=== PATIENT | female | born 1965 | race Caucasian/White ===

== ENCOUNTER 2024-06-08 18:01 | Emergency (ER) | payer OTHER, SELFPAY ==
--- NOTE | ~2024-06-08 | CT_ITS ---
CLINICAL HISTORY: fairchild, all day, nausea, vomiting, vertigo CT Head without contrast. CT angiography head and neck with contrast. 3D Postprocessing. Comparison: None Findings: HEAD CT: No intra-axial mass, midline shift, hydrocephalus, or acute hemorrhage. No significant atrophy-like change or white matter disease. There is no sinus or mastoid fluid. The orbits are unremarkable. There is no acute fracture. HEAD AND NECK CTA: Aortic arch and cervical great vessels are patent. Intracranial arteries are patent. No aneurysm, dissection, or occlusion. No abnormal intracranial enhancement. The visualized thyroid gland is unremarkable. No cervical mass or fluid collection. Lung apices clear. No acute fracture. IMPRESSION: 1. Unremarkable head CT. 2. Patent head and neck CTA. This document has been electronically signed by: Jeff Borja MD on 06/08/2024 23:21:36
[2024-06-08 18:13] VITALS: BP 129/60; BP 131/88; PULSE 70; PULSE 80; RESP 16; TEMP 36.4; O2SAT 96; O2SAT 99; BMI 35.5
--- NOTE | 2024-06-08 18:31 | ECG_ITS ---
Test Reason : NAUSEA Blood Pressure : / mmHG Vent. Rate : 066 BPM Atrial Rate : 066 BPM P-R Int : 130 ms QRS Dur : 088 ms QT Int : 414 ms P-R-T Axes : 038 -10 002 degrees QTc Int : 434 ms Normal sinus rhythm with sinus arrhythmia Septal infarct , age undetermined Abnormal ECG No previous ECGs available Referred By: Starr Fatima Electronically Signed By:SHIRIN FIGUEROA MD
[2024-06-08 18:49] LABS: Basophils Absolute Auto 0.1 X10*3/uL (0.0-0.2); Basophils Percent Auto 0.6 % (0-2); Eosinophils Percent Auto 0.2 % (0-4); Hematocrit 42.7 % (37.0-47.0); Hemoglobin 14.5 g/dl (12.0-16.0); Imm Gran Abs Auto 0.03 X10*3/uL (0.00-0.03); Imm Gran Pct Auto 0.3 % (0.0-0.4); Lymphocytes Absolute Auto 1.6 X10*3/uL (1.2-4.9); Lymphocytes Percent Auto 13.9 % (20-40); MANUAL DIFF FLAG NO; Mean Corpuscular Hemoglobin 31.7 pg (27.0-33.0); Mean Corpuscular Volume 93.2 fL (80.0-98.0); Mean Platelet Volume 9.9 fL (9.4-12.3); Monocytes Absolute Auto 0.5 X10*3/uL (0.1-1.2); Neutrophils Absolute Auto 9.1 x10*3/uL (2.0-8.3); Platelet Count 225 X10*3/uL (160-400); Red Blood Count 4.58 X10*6/uL (4.20-5.50); Red Cell Distribution Width 12.3 % (11.0-16.0); White Blood Count 11.2 X10*3/uL (4.8-10.8)
[2024-06-08 19:09] LABS: Alanine Aminotransferase 148 U/L (0-31); Albumin Level 4.4 g/dL (3.5-5.0); Alkaline Phosphatase 71 U/L (39-117); Anion Gap 15 (12-20); Aspartate Amino Transferase 114 U/L (5-31); Bilirubin Total 0.5 mg/dL (0.0-1.0); Blood Urea Nitrogen 13 mg/dL (9-16); Calcium 9.6 mg/dL (8.4-10.2); Carbon Dioxide 21 mmol/L (22-29); Chloride 107 mmol/L (96-108); Creatinine Clr Calc Pharmacy 95.5; Estimated Glomerular Filt Rate > 60; Glucose Random 198 mg/dL (60-115); Potassium 5.3 mmol/L (3.3-5.1); Sodium 138 mmol/L (135-145); Total Protein 7.7 g/dL (6.5-8.0)
[2024-06-08 19:17] LABS: Troponin-I High Sensitivity < 2.7 ng/L (<3.5-17.0)
[2024-06-08 20:33] VITALS: BP 125/71; PULSE 76; RESP 16; TEMP 36.9; O2SAT 96
--- NOTE | 2024-06-08 20:35 | PC.NURSE ---
Addendum entered by Faizan Avila 06/08/24 20:39: pt denies double, or blurred vision, report no prior hx of symptoms Original Note: pt in bed, with towel over her face, reports that her eyes are sensitive to light, also co nausea. DIDIER Aldridge notified, awaiting orders
[2024-06-08] MEDS: Meclizine HCl 25 MG TABLET 50 MG PO (20:53)
[2024-06-08] MEDS: iohexoL 350 MG/ML 100 ML INFUS..BTL IV (22:16)
--- NOTE | 2024-06-08 22:21 | ED_ITS ---
HPI - Dizziness General Chief Complaint: Dizziness Stated Complaint: DIZZY, N/V Time Seen by Provider: 06/08/24 21:26 History of Present Illness HPI Narrative: Patient is a 58-year-old female presents today with having headache spinning sensation that is worse with movement. No history of the same in the past. Patient was moving a bag of pellet at that time. There is no chest pain. There is no diaphoresis. There is no fever. The spinning is made worse with movement. Given Zofran on the ambulance to no avail. Patient was given Antivert in the emergency department prior to me evaluating patient. Still not better. Related Data Previous Rx's ?Medication ?Instructions ?Recorded meclizine 25 mg tablet 25 mg PO TID PRN dizziness #14 tabs 06/09/24 ondansetron 4 mg disintegrating 4 mg PO TID PRN nausea and 06/09/24 tablet vomiting 5 days #10 tabs Allergies Allergy/AdvReac Type Severity Reaction Status Date / Time fluoxetine Allergy Agitated Verified 06/08/24 18:18 morphine Allergy Anaphylaxis Verified 06/08/24 18:16 transparent dressing Allergy Rash Verified 06/08/24 18:19 Review of Systems 2 Review of Systems: Positive headache positive spinning sensation that is extreme. Worse with Yes all other systems are reviewed and are negative [facility] Past Medical History Attestation statement: The following information was validated with the patient. Social History Social History Smoked in Last 30 Days: No Use of substances other than those prescribed or required for medical reasons: No Advance Directives: No Advance Directives Information Provided: No Do you have a plan to hurt others: No Plan Physical Exam 2 Vital Signs: Vital Signs: Last Vital Signs Temp 98.5 F 06/08/24 20:33 Pulse 76 06/08/24 20:33 Resp 16 06/08/24 20:33 BP 125/71 06/08/24 20:33 Pulse Ox 96 06/08/24 20:33 O2 Del Method Room Air 06/08/24 20:33 BMI result Body Mass Index 35.5 Appearance: Alert. Oriented X3. No acute distress. Eyes: Pupils equal, round and reactive to light. ENT: Pharynx normal. Neck: Normal inspection. Neck supple. No lymph nodes noted. No crepitus CVS: Normal heart rate and rhythm. Pulses normal. Normal S1 and S2 Respiratory: No respiratory distress. Breath sounds normal. No Wheezing. No rales Abdomen: Soft and nontender. No rigidity. No distention. good BS x4 Skin: Skin warm and dry. Normal skin color. Normal skin turgor. Extremities: No lower extremity edema. Neurovascular intact to all extremities. No Lacerations. No Rash Neuro: Oriented X 3. No motor deficit. No sensory deficit. Moving all extermities. No slurred speech. On turning patient's head there is reproduction of patient's vertigo. Medications Administered Discontinued Medications Generic Name Dose Route Start Last Admin Trade Name Freq PRN Reason Stop Dose Admin Sodium Chloride 1,000 mls @ 999 mls/hr 06/08/24 22:15 06/08/24 23:57 Ns IV 06/08/24 23:15 Infused .Q1H1M CHERYL Infusion Iohexol 100 ml 06/08/24 22:15 06/08/24 22:16 Iohexol 350 Mg/Ml 100 Ml Infus..Btl IV 06/08/24 22:16 85 ml ONCE ONE Administration Lorazepam 1 mg 06/08/24 22:08 06/08/24 22:48 Lorazepam 2 Mg/Ml Vial IVPUSH 06/08/24 22:09 1 mg ONCE ONE Administration Meclizine HCl 50 mg 06/08/24 20:41 06/08/24 20:53 Meclizine Hcl 25 Mg Tablet PO 06/08/24 20:42 50 mg ONCE ONE Administration Ondansetron HCl 4 mg 06/08/24 22:08 06/08/24 22:48 Ondansetron Hcl 4 Mg/2 Ml Vial IVPUSH 06/08/24 22:09 4 mg ONCE ONE Administration Medical Decision Making Medical Decision Making [facility] Narrative: Patient is a 58-year-old female has sudden onset of spinning sensation. There is no focal weakness. patient felt extremely nauseous and was vomiting with any small movement. No chest pain or shortness of breath. Also had some headache. The symptoms started at around noon. Was given Zofran. Differential Diagnosis Differential Diagnoses: The differential diagnosis associated with the presentation includes Intracranial bleed, aneurysm, peripheral vertigo Admission/Observation Consideration of admission/observation: Escalation of care including admission/observation considered Lab Data [facility] Lab Attestation statement: I reviewed the patient's lab results. 06/08/24 18:41 06/08/24 18:41 Labs: Lab Results 06/08/24 06/08/24 Range/Units 18:41 18:42 WBC 11.2 H (4.8-10.8) X10*3/uL RBC 4.58 (4.20-5.50) X10*6/uL Hgb 14.5 (12.0-16.0) g/dl Hct 42.7 (37.0-47.0) % MCV 93.2 (80.0-98.0) fL MCH 31.7 (27.0-33.0) pg MCHC 34.0 (31.0-35.0) g/dl RDW 12.3 (11.0-16.0) % Plt Count 225 (160-400) X10*3/uL MPV 9.9 (9.4-12.3) fL Immature Gran % (Auto) 0.3 (0.0-0.4) % Neut % (Auto) 81.0 H (45-73) % Lymph % (Auto) 13.9 L (20-40) % [place] % (Auto) 4.0 (2-11) % Eos % (Auto) 0.2 (0-4) % Baso % (Auto) 0.6 (0-2) % Lymph # (Auto) 1.6 (1.2-4.9) X10*3/uL [place] # (Auto) 0.5 (0.1-1.2) X10*3/uL Eos # (Auto) 0.0 (0.0-0.4) X10*3/uL Baso # (Auto) 0.1 (0.0-0.2) X10*3/uL Abs Immat Gran (auto) 0.03 (0.00-0.03) X10*3/uL Absolute Neuts (auto) 9.1 H (2.0-8.3) x10*3/uL Absolute Nucleated RBC 0.000 (0.0-0.012) X10*3/uL Nucleated RBC % (auto) 0.0 (0.0-0.2) /100WBC Sodium 138 (135-145) mmol/L Potassium 5.3 H (3.3-5.1) mmol/L Chloride 107 (96-108) mmol/L Carbon Dioxide 21 L (22-29) mmol/L Anion Gap 15 (12-20) BUN 13 (9-16) mg/dL Creatinine 0.73 (0.5-1.4) mg/dL Estim Creat Clear Calc 95.5 Estimated GFR > 60 Random Glucose 198 H (60-115) mg/dL Calcium 9.6 (8.4-10.2) mg/dL Total Bilirubin 0.5 (0.0-1.0) mg/dL AST 114 H (5-31) U/L ALT 148 H (0-31) U/L Alkaline Phosphatase 71 (39-117) U/L Troponin I High Sens < 2.7 (<3.5-17.0) ng/L Total Protein 7.7 (6.5-8.0) g/dL Albumin 4.4 (3.5-5.0) g/dL Independent Interpretation I performed an independent interpretation of an: CT Scan (CT scan head was grossly negative for any acute evidence of bleed) Radiology Impression Discussion of test interpretation with radiology: I have reviewed the radiologist's reading. Discharge Plan Discharge Clinical Impression: Benign paroxysmal positional vertigo Patient Disposition: Home, Self-Care Instructions: Vertigo (ED), Benign Paroxysmal Positional Vertigo (ED) Prescriptions: New meclizine 25 mg tablet 25 mg PO TID PRN (Reason: dizziness) Qty: 14 0RF ondansetron 4 mg tablet,disintegrating 4 mg PO TID PRN (Reason: nausea and vomiting) 5 Days Qty: 10 0RF Referrals: Tamara Martinez MD [Primary Care Provider] - 06/11/24 Print Language: Malay
[2024-06-08] MEDS: LORazepam 2 MG/ML VIAL 1 MG IVPUSH (22:48)
[2024-06-08] MEDS: ondansetron HCL 4 MG/2 ML VIAL IVPUSH (22:48)
[2024-06-08] MEDS: 0.9 % Sodium Chloride 1,000 ML 999 ML IV (22:49)
--- NOTE | 2024-06-08 23:00 | PC.NURSE ---
pt fromct scan, medicated with zofran and ativan iv, and ns saline infusing
--- NOTE | 2024-06-09 00:14 | PC.NURSE ---
pt assisted to commode with a walker, voided, reports mildly nauseous , md aware
[2024-06-09 00:15] VITALS: BP 105/50; PULSE 73; RESP 16; TEMP 36.4; O2SAT 99
== END 2024-06-09 00:25 | disposition home or self-care (01) ==
PROVIDERS: Emergency Provider Emergency Medicine Emergency Medical Services; PCP Internal Medicine
DX: H81.10 Benign paroxysmal vertigo, unspecified ear (principal); R51.9 Headache, unspecified; R11.2 Nausea with vomiting, unspecified
CPT/HCPCS: 36415; 70496; 70498; 80053; 84484; 85025; 93005; 96361; 96374; 96375; 99284; 99285; J2060; J2405; Q9967

== ENCOUNTER → 2024-06-08 18:31 | Outpatient (BNV) | payer OTHER, SELFPAY | PROVIDERS: Emergency Provider Emergency Medicine Emergency Medical Services; PCP Internal Medicine; Visit Provider Internal Medicine Cardiovascular Disease | DX: R42 Dizziness and giddiness (principal); R94.31 Abnormal electrocardiogram [ECG] [EKG]; R11.0 Nausea | CPT/HCPCS: 93010 ==

== ENCOUNTER → 2024-06-08 22:08 | Outpatient (BNV) | payer OTHER, SELFPAY | PROVIDERS: Emergency Provider Emergency Medicine Emergency Medical Services; PCP Internal Medicine; Visit Provider Radiology Diagnostic Radiology | DX: R51.9 Headache, unspecified (principal); R42 Dizziness and giddiness; R11.2 Nausea with vomiting, unspecified | CPT/HCPCS: 70496; 70498 ==

== ENCOUNTER 2025-04-11 10:53 | Outpatient (REF) | payer BC, SELFPAY ==
--- OUTSIDE RECORDS SUMMARY | 2024-06-06 03:00 | XMS_ITS ---
Author Organization [employer] Address [address] [facility] [address] [place] [address] Care Team Providers Care Supervisor Fabrication Department Name Role Phone CATALINO LOVE M.D. 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 Medications Medication SIG (Take, Route, Frequency, Duration) Notes Start Date End Date Status Vitamin D 1 tablet Orally Acti ve Letrozole 2.5 MG Oral; Duration: 90 Active Atorvastatin Calcium 10 MG TAKE 1 TABLET BY MOUTH EVERYDAY AT BEDTIME Oral; Duration: 90 Active Encounters Encounter Location Date Provider Diagnosis [facility] [address] [address] 06/06/2024 ANNABELLE JUDGE Encounter for gynecological examination (general) (routine) without abnormal findings Z01.419 ; Encounter for screening mammogram for malignant neoplasm of breast Z12.31 and Encounter for screening for infections with a predominantly sexual mode of transmission Z11.3 Assessments Encounter Date Diagnosis (ICD Code) Assessment Notes Treatment Notes Treatment Clinical Notes Section Notes 06/06/2024 Encounter for gynecological examination (general) (routine) without abnormal findings (ICD-10 - Z01.419) During the visit, the following areas of concern were addressed: Discussed cervical cancer screening with either cytology alone every 3 years or high risk HPV co-testing every 5 years as per ASCCP guidelines. Advised continued annual pelvic exams. Patient encouraged to increase her level of exercise. SBE technique encouraged/tau ght. Patient reminded when annual mammogram is due. Patient encouraged to keep colon screening up to date. 06/06/2024 Encounter for screening mammogram for malignant neoplasm of breast (ICD-10 - Z12.31) 06/06/2024 Encounter for screening for infections with a predominantly sexual mode of transmission (ICD-10 - Z11.3) Plan Of Treatment Treatment Notes Assessment Notes Encounter for gynecological examination (general) (routine) without abnormal findings During the visit, the following areas of concern were addressed: Discussed cervical cancer screening with either cytology alone every 3 years or high risk HPV co-testing every 5 years as per ASCCP guidelines. Advised continued annual pelvic exams. Patient encouraged to increase her level of exercise. SBE technique encouraged/taught. Patient reminded when annual mammogram is due. Patient encouraged to keep colon screening up to date. 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 Subjective: * Chief Complaints: * 1 . 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 She has been in state of good health since her last exam. She has the following concerns: *none She has received the [employer] Covid-19 vaccine and booster. Relationship status: * for 14 years. She is sexually active. Sexual partner(s): female. She does not wish to have STI testing. She does *not report vaginal dryness. She does* have hot flashes/night sweats - tolerable. The patient has had an abnormal pap smear within the last 5 years. Her paps in 2018 and 2018 showed ASCUS, r/o HSIL, neg HR HPV. Her most recent pap was 01/18/22 - NIL, neg HR HPV. Her previous pap smear was 04/20/2020 - NIL, neg HR HPV. Next due for cotesting in 2026. She has been diagnosed with left breast cancer, and is followed by [facility]. She does *not have a family history of breast cancer. Her last mammogram was 10/02/23. She had a breast MRI 06/15/21. She had a left breast ultrasound on 11/13/23 for a palpable lump with a burning sensation, normal exam. She does have a family history of colon cancer - father. She a has had a colonoscopy. The last colonoscopy was 07/19/23. She is due for follow up . The patient does* exercise. She exercises x 1-2 days/week by treadmill - doing intervals. 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 B ladder symptoms d enies. V aginal discharge, unusual d enies. V aginal itch or odor d enies. w eight or appetite changes d enies. C hest pains, SOB d enies. d epression d enies.? B reast: Denies B reast lump. D enies N ipple discharge.? H ematology: Denies S wollen glands. S kin: Patient denies c hanging moles. P sychiatric: Denies A nxiety. * Medical History: * Retread Operator History: G ravida/ Para 2 /1011. S exual activity c urrently sexually active. L ast Pap Smear: NIL, NEG HR HPV , 04/20/2020, 04/18/19 ASCUS cannot exclude HGSIL, NEG HRHPV, 04/03/18 ASCUS r/o HSIL,NEG HRHPV. M ammogram: , BREAST MRI 06/15/21, BREAST US 11/13/23, 09/08/22, 08/02/2020, 07/10/19 < 50% density, 03/2018- found something on Mammo, but u/s came back neg. Bx done 04/04/18. MRI 01/2019. A bnormal Pap Smear: e juanjo 40s. No colpo done. All f/u paps were WNL until 2018 - 04/03/18 ASCUS r/o HSIL,NEG HRHPV; 06/2018 - colpo chronic cervicitis. L MP and menses 2 014-Alina. H istory of STD's: N one. B irth Control: P ost menopausal. C olonoscopy , 04/2017-WNL. B one Density: 2 019. G YN HISTORY MISC. C arries a gene (NBN) that increases her risk of breast cancer by 30%. * OB History: T otal pregnancies G 2 P1011, vaginal. P regnancy # 1: n ormal spontaneous vaginal delivery (), 09/08/88, Claudy, 6lb 8oz, no complications. P regnancy # 2: 1 991 - had D&C for that never developed. 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 HEAD: n ormocephalic, atraumatic. NECK/THYROID: n mendez supple, full range of motion, thyroid normal. LYMPH NODES: n o axillary or supraclavicular adenopathy.? SKIN: normal, good turgor, no rashes, no suspicious lesions. BREASTS: normal, no dimpling, no discharge, no drainage, no masses palpable bilaterally, nontender. ABDOMEN: soft, non-tender, non distended without masses or hepatosplenomegay. RECTAL: d eferred due to recent colonoscopy. BACK: no costovertebral angle tenderness. FEMALE GENITOURINARY: V ulva without lesions or masses, vagina pink without abnormal discharge, lesions or masses, cervix appears normal and is not tender to palpation, uterus is normal size, mobile, nontender and anteverted, ovaries are not palpable. NEUROLOGIC: alert and oriented, gait normal. PSYCH: alert, oriented, cognitive function intact, cooperative with exam, good eye contact, mood/affect full range, speech clear. Assessment: * Assessment: 1. E ncounter for gynecological examination (general) (routine) without abnormal findings - Z01.419 (Primary) 2 . E ncounter for screening mammogram for malignant neoplasm of breast - Z12.31 3 . E ncounter for screening for infections with a predominantly sexual mode of transmission - Z11.3 Plan: * Treatment: 2. E ncounter for screening mammogram for malignant neoplasm of breast I maging: MM Digital Screening Mammogram 3D * Follow Up: 1 Year (Reason: Yearly Retread Operator Exam) * Images: Billing Information: * Visit Code: * Procedure Codes: * Electronic signature of ANNABELLE JUDGE MD on 04/11/2025 at 01:07 PM EST Sign off status: Pending * Provider: Naseem JUDGE MD Date: 0 06/06/2024 Generated for Radha nathan/Barry/Vyitting on: 06/11/2024 01:07 PM EST History and Physical Notes * HPI (History of Present Illness) Category Sub-Category Detail Notes Category Not es Constitutional Kalani is a 58yo with LMP 2014 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 She has been in state of good health since her last exam. She has the following concerns: *none She has received the [employer] Covid-19 vaccine and booster. Relationship status: * for 14 years. She is sexually active. Sexual partner(s): female. She does not wish to have STI testing. She does *not report vaginal dryness. She does* have hot flashes/night sweats - tolerable. The patient has had an abnormal pap smear within the last 5 years. Her paps in 2018 and 2018 showed ASCUS, r/o HSIL, neg HR HPV. Her most recent pap was 01/18/22 - NIL, neg HR HPV. Her previous pap smear was 04/20/2020 - NIL, neg HR HPV. Next due for cotesting in 2026. She has been diagnosed with left breast cancer, and is followed by [facility]. She does *not have a family history of breast cancer. Her last mammogram was 10/02/23. She had a breast MRI 06/15/21. She had a left breast ultrasound on 11/13/23 for a palpable lump with a burning sensation, normal exam. She does have a family history of colon cancer - father. She a has had a colonoscopy. The last colonoscopy was 07/19/23. She is due for follow up . The patient does* exercise. She exercises x 1-2 days/week by treadmill - doing intervals. 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 HEAD: normocephalic, atrau matic NECK/THYROID: neck supple, full ra nge of motion, thyroid normal ABDOMEN: soft, non-tender, no n distended without masses or hepatosplenomegay NEUROLOGIC: alert and oriented, gait normal SKIN: normal, good turgor, no rashes, no suspicious lesions BACK: no costovertebral an gle tenderness BREASTS: normal, no dimpling, no discharge, no drainage, no masses palpable bilaterally, nontender LYMPH NODES: no axillary or supra clavicular adenopathy RECTAL: deferred due to rece nt colonoscopy PSYCH: alert, oriented, cog nitive function intact, cooperative with exam, good eye contact, mood/affect full range, speech clear FEMALE GENITOURINARY: Vulva without lesi ons or masses, vagina pink without abnormal discharge, lesions or masses, cervix appears normal and is not tender to palpation, uterus is normal size, mobile, nontender and anteverted, ovaries are not palpable
[2025-04-11 11:46] LABS: Hemoglobin A1C 104.5569 umol/L
[2025-04-11 12:18] LABS: Alanine Aminotransferase 20 U/L (0-31); Albumin Level 4.6 g/dL (3.5-5.0); Alkaline Phosphatase 70 U/L (39-117); Anion Gap 13 (12-20); Aspartate Amino Transferase 25 U/L (5-31); Blood Urea Nitrogen 12 mg/dL (9-16); Calcium 9.7 mg/dL (8.4-10.2); Carbon Dioxide 25 mmol/L (22-29); Chloride 108 mmol/L (96-108); Estimated Glomerular Filt Rate > 60; Potassium 5.2 mmol/L (3.3-5.1); Sodium 141 mmol/L (135-145); Total Protein 7.6 g/dL (6.5-8.0)
--- OUTSIDE RECORDS SUMMARY | 2025-04-11 13:07 | XMS_ITS | Patient Health Record ---
Author Organization [facility] Address [address] [place] [address] Care Team Providers Care Wire Technician Name Role Phone CATALINO LOVE M.D. Primary Care Provider Keturah shermanjosejosephine JUDGE ANNABELLE Unavailable [phone] Allergies Allergen (clinical drug ingredient) Drug/Non Drug Allergy documented on EMR Reaction Allergy Type Onset Date Status TAPE (uncoded) rash Allergy Activ e morphine Morphine Sulfate turn blue and v emerson cold Drug Allergy Active fluoxetine PROZAC HYPERACTIVITY Drug Allergy Ac tive TEGADERM Skin Rash Drug Allergy Active anastrozole Anastrozole body aches Drug Allergy Ac tive Reason For Referral No Information Medications Medication SIG (Take, Route, Frequency, Duration) Notes Start Date End Date Status Vitamin D 1 tablet Orally Acti ve Social History Tobacco Use: Social History Observation Description Date Details (start date - stop date) Never Smoker NA - NA Tobacco Use/Smoking Question Answer Notes Are you a nonsmoker Sexual History Question Answer Notes Had sex in the past 12 months (vaginal, oral, or anal)? Yes with Women only Tobacco use other than smoking: Question Answer Notes Are you an other tobacco user? No AUDIT-C (Standard) Question Answer Notes Did you have a drink containing alcohol in the p ast year? No Points 0 Interpretation Negative Section Notes: Goes by Linda MARITAL STATUS: has X since 2006 CHILDREN: 1 boy 24 y/o ( from prev. 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 Homosexual Goes by Linda MARITAL STATUS: has X since 2006 CHILDREN: 1 boy 24 y/o ( from prev. 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 Homosexual Goes by Linda MARITAL STATUS: has X since 2006 CHILDREN: 1 boy 24 y/o ( from prev. 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 Homosexual Goes by Linda MARITAL STATUS: to 2006 CHILDREN: 1 boy 24 y/o ( from prev. 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 Homosexual Goes by Linda MARITAL STATUS: to 2006 CHILDREN: 1 boy 24 y/o ( from prev. 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 Homosexual Goes by Linda Goes by Linda Goes by Linda Goes by Linda Goes by Linda Goes by Linda Goes by Linda Goes by Linda Goes by Linda Goes by Linda Goes by Linda Goes by Linda Problems Problem Type SNOMED Code ICD Code Onset Dates Problem Status W/U Status Risk Notes Problem Atypical squamous cells on cervical Papanicolaou smear cannot exclude high grade squamous intraepithelial lesion (323815450) Atypical squamous cells cannot exclude high grade squamous intraepithelial lesion on cytologic smear of cervix (ASC-H) (R87.611) Active confirmed Problem Postmenopausal bleeding (95582231) Postmenopausal bleeding (N95.0) Active confirmed Problem Malignant neoplasm of central part of female breast (108024683) Malignant neoplasm of central portion of left female breast (C50.112) Active confirmed Problem Hyperlipidemia (12380623) Hyperlipidemia, unspecified (E78.5) Active confirmed Problem Migraine without aura, not refractory (disorder) (526862570) Migraine, unspecified, not intractable, without status migrainosus (G43.909) Active confirmed Problem Abnormal findings on diagnostic imaging of breast (487592542) Other abnormal and inconclusive findings on diagnostic imaging of breast (R92.8) Active confirmed Problem Carrier of genetic disease (27836829) 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) Active confirmed Problem Family history of malignant neoplasm of gastrointestinal tract (342584884) Family history of malignant neoplasm of digestive organs (Z80.0) Active confirmed Problem Family history of malignant neoplasm of ovary (080165751) Family history of malignant neoplasm of ovary (Z80.41) Active confirmed Vital Signs Temperature 98.4 degrees Fahrenheit 08/15/2024 Blood pressure diastolic 72 mm Hg 08/15/2024 Height 64 in 08/15/2024 Blood pressure systolic 122 mm Hg 08/15/2024 Weight 195 lbs 08/15/2024 BMI 33.47 kg/m2 08/15/2024 Encounters Encounter Location Date Provider Diagnosis [facility] [address] [place] [address] 06/06/2024 ANNABELLE JUDGE Encounter for gynecological examination (general) (routine) without abnormal findings Z01.419 ; Encounter for screening mammogram for malignant neoplasm of breast Z12.31 and Encounter for screening for infections with a predominantly sexual mode of transmission Z11.3 [facility] [address] [place] [address] 08/15/2024 ANNABELLE JUDGE Encounter for gynecological examination (general) (routine) without abnormal findings Z01.419 and Encounter for screening mammogram for malignant neoplasm of breast Z12.31 Assessments Encounter Date Diagnosis (ICD Code) Assessment [...] to keep colon screening up to date. 08/15/2024 Encounter for gynecological examination (general) (routine) without [...] to keep colon screening up to date. 08/15/2024 Encounter for screening mammogram for malignant neoplasm of breast (ICD-10 - Z12.31) Managed by [facility] 06/06/2024 Encounter for screening mammogram for malignant neoplasm of breast (ICD-10 - Z12.31) 06/06/2024 Encounter for screening for infections with a predominantly sexual mode of transmission (ICD-10 - Z11.3) Plan Of Treatment Pending Test Test Name Order Date THIN PREP,HPV,ANDRZEJ IF HPV+ (>29YR)(DIAG) 11/29/2019 THIN PREP,HPV,ANDRZEJ IF HPV+ (>29YR)(DIAG) 04/20/2020 THIN PREP,HPV,ANDRZEJ IF HPV+ (>29YR)(DIAG) 04/03/2018 TEST, (IN HOUSE) 06/13/2018 ULTRASOUND: PELVIC W/TRANSVAGINAL 2020 MM Digital Screening Mammogram 3D 2021 MM Digital Screening Mammogram 3D 2022 MM Digital Screening Mammogram 3D 2024 MM Digital Screening Mammogram 3D 2024 Next Appt Details Provider Name:ANNABELLE Lobo, 08/21/2025 08:40:00 AM, [address], [address], [place], [address], Insurance Providers Payer Name Payer Address Payer Phone Subscriber Number Group Number Insured Name Patient Relationship to Insured Coverage Start Date Coverage End Date [employer] [address] [place] [address] [id number] PRETTY ATKINS Self - patient is the insured Medical (General) History Medical History History ICD Code Migraine, unspecified, not intractable, without status migrainosus Genetic carrier of other disease Z14.8 Malignant neoplasm of central portion of left female breast C50.112 Hyperlipidemia, unspecified E78.5 Surgical History Surgery Date(Month/Year) cholecystectomy 2002 Left Breast Biopsy 04/03/2018 Breast Surgery-Lumpectomy le ft breast, with lymph node sampling, followed by radiation (invasive ductal and lobular carcinoma) 05/11/2018 Dilation & Curettage - loss 19 91
== END 2025-04-11 10:54 | disposition home or self-care (01) ==
LOC: HO.LAB 10:53
PROVIDERS: PCP Internal Medicine; Visit Provider Internal Medicine
DX: E11.9 Type 2 diabetes mellitus without complications (principal); K76.0 Fatty (change of) liver, not elsewhere classified; R03.0 Elevated blood-pressure reading, without diagnosis of hypertension; E55.9 Vitamin D deficiency, unspecified
CPT/HCPCS: 36415; 80053; 82306; 83036